=== PATIENT | male | born 1975 | race Caucasian/White ===

== ENCOUNTER 2020-04-24 08:08 | Day surgery (SDC) | payer OTHER ==
[~2020-04-24] VITALS: Ht 175.3 cm; Wt 75.3 kg
[~2020-04-24 08:08] MED LIST: IBUPROFEN200 M1 PO; ONE DAILY FOR1 EAC1 PO
[2020-04-24] MEDS ORDERED: BENADRYL25 MG PO (08:33)
--- NOTE | 2020-04-24 10:28 | NUR ---
04/24/20 Disha8 Wilma Olivas 1021- PT TO PACU IN LL POSITION. EYES OPEN TAKING DEEP BREATHS SP02 >95% ON 3 L O2 VIA NC. BREATHING EASY AND UNLABORED. PT ENCOURAGED TO TAKE DEEP BREATHS AND PASS GAS. 121- PT PASSING GAS. BREATHING EASY AND UNLABOERD. O2 TITRATED TO ROOM AIR. PT DENIES PAIN NAUSEA OR DIZZINESS
--- NOTE | 2020-04-25 14:25 | OR ---
[facility] [address] [place], [place] [address] Signed DATE OF OPERATION: 04/24/2020 SURGEON: Christie Moser MD PREOPERATIVE DIAGNOSES: 1. Change in bowel habits. 2. Rectal fullness/pain. POSTOPERATIVE DIAGNOSES: 1. Small irritated internal hemorrhoid x1. 2. Minimal sigmoid diverticulosis. 3. A 3 mm rectal polyp at 6 cm. PROCEDURE: Colonoscopy with hot biopsy. ESTIMATED BLOOD LOSS: None. INDICATIONS: Damian is a 45-year-old gentleman asked to see me for a colonoscopy. For a last year and a half, he has had a change in bowel habits. He feels a sense of fullness maybe he has some pain at the anus. He feels like there is some redundancy to the skin. He went to his primary care provider. A digital rectal exam was unremarkable. As a result, he was asked to see me for a colonoscopy to fully evaluate the rectum in the remainder of the colon. He told me there is no family history of colon cancer or polyps or inflammatory bowel disease. He is pretty certain he has hemorrhoid tissue. In the office, I gave him a pamphlet on colonoscopy and we reviewed the nature of the test along with the risks including, but not limited to gas bloating, crampy abdominal pain, bleeding, perforation requiring surgery, and missed diagnosis. He also understands the need for IV conscious sedation, he had expressed understanding and wished to proceed. DESCRIPTION OF PROCEDURE: Damian was taken into our endoscopy suite and placed in the left lateral decubitus position. He was given IV sedation with 9 mg of Versed and 100 mcg of fentanyl. A digital rectal exam was performed and he has good sphincter tone. Excellent perianal hygiene. Really not much in the way of external hemorrhoids. Prostate is a little indurated and slightly enlarged given his age. No palpable masses. The adult colonoscope was then introduced and advanced under direct visualization of camera into the cecum itself without difficulty. He did need little extra sedation in order to Electronically Signed By: CHRISTIE MOSER MD 04/24/20 1116 Electronically Signed By: CHRISTIE MOSER MD 04/26/20 0704 PATIENT NAME: DAMIAN WOLFF OPERATIVE REPORT DATE OF : 75 REPORT #: [id number] PHYSICIAN: CHRISTIE MOSER MD PCP: ORLANDO JESUS MD REPORT IS CONFIDENTIAL AND NOT TO BE RELEASED WITHOUT AUTHORIZATION [facility] [address] [place], [place] [address] Signed advance the scope. His prep was quite clean. We could easily see the appendiceal orifice and the ileocecal valve. The scope was slowly withdrawn. He does have some diverticula in his mid sigmoid colon. They were moderate in size, few in number, and scattered about. No polyps in the colon down in the rectum, but was just a very tiny 3 mm polypoid lesion at 6 cm, easily removed and destroyed completely with hot biopsy forceps. Upon retroflexion of scope, he does have a small single irritated internal hemorrhoid column. No active bleeding at this time. After this, the gas was suctioned out and the colonoscope removed. Damian tolerated the procedure quite well. RECOMMENDATIONS: I will see Damian back in my office in 7 to 14 days to review his results. Christie Moser MD ALB/MODL /[id number] cc: MD Orlando Pedroza MD Copies: CHRISTIE MOSER MD, ROBERT D DMD ~ Electronically Signed By: CHRISTIE MOSER MD 04/24/20 1116 Electronically Signed By: CHRISTIE MOSER MD 04/26/20 0704 PATIENT NAME: DAMIAN WOLFFN OPERATIVE REPORT DATE OF : 75 REPORT #: [id number] PHYSICIAN: CHRISTIE MOSER MD PCP: ORLANDO JESUS MD REPORT IS CONFIDENTIAL AND NOT TO BE RELEASED WITHOUT AUTHORIZATION
== END 2020-04-24 10:55 | disposition home or self-care (01) ==
LOC: DS 08:08 → OPS 08:08 → DS 08:16 → OPS 09:45 → DS 09:45 → OPS 10:55
PROVIDERS: Colon & Rectal Surgery
PROC: 0DBP8ZZ Excision of Rectum, Via Natural or Artificial Opening Endoscopic (ICD-10-PCS; principal; 2020-04-24 09:45)
DX: K62.1 Rectal polyp (principal); K64.8 Other hemorrhoids; K57.30 Diverticulosis of large intestine without perforation or abscess without bleeding; Z87.891 Personal history of nicotine dependence
CPT/HCPCS: 99153; G0500; J2250; J3010; J7121

== ENCOUNTER 2023-07-17 10:38 | Emergency (ER) | payer OTHER ==
[~2023-07-17] VITALS: Ht 175.3 cm; Wt 81.8 kg
[~2023-07-17 10:38] MED LIST changes: +BENADRYL25 MG PO; +FISH OIL 1,0001 EAC6 PO; +HYDROCODON-ACE1 EAC8 PO; +SINGULAIR10 MG PO
[2023-07-17] MEDS ORDERED: CEPHALEXIN500 M1 PO (10:56)
[2023-07-17] MEDS ORDERED: BACTRIM DS TAB1 EACH PO (10:56)
[2023-07-17 11:12] VITALS: BP 134/85
== END 2023-07-17 11:05 | disposition home or self-care (01) ==
LOC: ED 10:38
DX: L25.8 Unspecified contact dermatitis due to other agents (principal); T81.49XA Infection following a procedure, other surgical site, initial encounter; Z87.891 Personal history of nicotine dependence; Z79.899 Other long term (current) drug therapy; Z98.890 Other specified postprocedural states
CPT/HCPCS: 99283